=== PATIENT | female | born 1950 | race Caucasian/White ===

== ENCOUNTER 2023-05-30 05:26 | Day surgery (SDC) | payer MEDICARE, OTHER ==
[2023-05-24 14:35] LABS: BASOPHILS % (AUTO) 0.6 % (0-1); EOSINOPHILS # (AUTO) 0.1 X10'3 (0-0.9); EOSINOPHILS % (AUTO) 2.3 % (0-6); LYMPHOCYTES # (AUTO) 1.9 X10'3 (1.1-4.8); LYMPHOCYTES % (AUTO) 33.2 % (21-51); MEAN CORPUSCULAR HEMOGLOBIN 32.6 PG (27.0-31.0); MEAN CORPUSCULAR HGB CONC 33.9 g/dL (33.0-36.5); MEAN PLATELET VOLUME 10.5 FL (7.4-10.4); MONOCYTES # (AUTO) 0.4 X10'3 (0-0.9); MONOCYTES % (AUTO) 7.6 % (2-12); NEUTROPHILS # (AUTO) 3.2 X10'3 (1.8-7.7); NEUTROPHILS % (AUTO) 56.3 % (42-75); PRE OP HEMATOCRIT 44.9 % (35.0-45.0); PRE OP HEMOGLOBIN 15.2 g/dL (12.0-16.0); PRE OP PLATELET COUNT 130 X10'3 (140-440); PRE OP WHITE BLOOD COUNT 5.8 10'3 (4.8-10.8); RED BLOOD COUNT 4.67 X10'6 (4.20-5.60); RED CELL DISTRIBUTION WIDTH 12.9 % (11.5-14.5)
[2023-05-24 14:49] LABS: ALBUMIN 4.2 G/DL (3.4-5.0); ALBUMIN/GLOBULIN RATIO 1.2 (1.1-1.5); ALKALINE PHOSPHATASE 49 IU/L (46-116); BLOOD UREA NITROGEN 21 MG/DL (7-18); BUN/CREATININE RATIO 22.1 (10.0-20.0); CHLORIDE 102 MMOL/L (99-107); CREATININE 0.95 MG/DL (0.40-0.90); PRE OP ALT 41 U/L (30-65); PRE OP ANION GAP 10 (8-16); PRE OP BILIRUB, TOTAL 0.5 MG/DL (0.0-1.0); PRE OP GLUCOSE 102 MG/DL (70-104); PRE OP SODIUM 139 MMOL/L (135-145); TOTAL CARBON DIOXIDE 26.9 MMOL/L (24-32); TOTAL PROTEIN 7.6 G/DL (6.4-8.2); eGFR 58 ML/MIN
[2023-05-24 16:09] LABS: PRE OP AST 23 U/L (10-37)
[2023-05-24 16:10] LABS: PRE OP POTASSIUM 4.6 MMOL/L (3.4-5.1)
[~2023-05-30] VITALS: Ht 170.2 cm; Wt 90.3 kg
[2023-05-30] VITALS (8 sets, daily range): BP systolic 113–164; BP diastolic 72–91; PULSE 57–75; RESP 10–16; TEMP 98.6; O2SAT 94–97
[~2023-05-30 05:26] MED LIST: ASPI-611 PO; BUPR300T86 PO; ESTR0.624 PO; LEVO25TA7 PO; METO25TA6 PO; SPIR50TA5 PO; TRET40CR9 TOP; ringers solution, lacted 1,000 ML IV SCH
[2023-05-30] MEDS ORDERED: famotidine 20mg tablet PO ONE (05:30)
[2023-05-30] MEDS ORDERED: DOCUMENT DATE & TIME OF BETA-BLOCKER PO ONE (05:30)
[2023-05-30] MEDS ORDERED: clindamycin-Cleocin 900mg/D5W 50 ML IV ONE (05:30)
[2023-05-30] MEDS ORDERED: BUPIVAcaine/PF 2.5 mg/ml (0.25%) 30ml vial ONE ×2 (06:37→07:09)
[2023-05-30] MEDS ORDERED: LIDOcaine 1% 30ml preserv. free vial ONE (06:37)
[2023-05-30] MEDS ORDERED: BUPIVACAINE liposomal/PF 13.3 MG/ML vial IM ONE ×2 (07:09→08:14)
[2023-05-30] MEDS ORDERED: fentaNYL /PF 50mcg/ml 5ml ampule ONE (07:27)
[2023-05-30] MEDS ORDERED: midazolam 1 mg/ML 2ml injection ONE (07:27)
[2023-05-30] MEDS ORDERED: labetalol 20mg/4ml (5mg/ml) syringe IV PRN (07:30)
[2023-05-30] MEDS ORDERED: ringers solution, lacted 1,000 ML IV SCH (07:30)
[2023-05-30] MEDS ORDERED: morphine 4 MG/ML inj SYRINge IV PRN (07:30)
[2023-05-30] MEDS ORDERED: proCHLORperazine 10 MG/2 ml inj IV PRN (07:30)
[2023-05-30] MEDS ORDERED: meperidine/PF 25mg/ml syringe IV PRN ×3 (07:30)
[2023-05-30] MEDS ORDERED: ondansetron/PF 4mg/2ml inj IV PRN (07:30)
[2023-05-30] MEDS ORDERED: acetaminophen 1,000mg/100ml IV 100 ML IV PRN (07:30)
[2023-05-30] MEDS ORDERED: morphine 2 MG/ML inj. syringe IV PRN (07:30)
[2023-05-30] MEDS ORDERED: hydrALAZINE 20mg/ml inj. IV PRN (07:30)
[2023-05-30] MEDS ORDERED: sevoflurane 250ml liquid IH ONE (07:32)
[2023-05-30] MEDS ORDERED: 0.9 % SODIUM CHLORIDE 10 ML VIAL ONE (07:55)
[2023-05-30] MEDS ORDERED: LIDOcaine 2% (20mg/ml) 5ml vial ONE (07:55)
[2023-05-30] MEDS ORDERED: ondansetron/PF 4mg/2ml inj ONE ×2 (07:55)
[2023-05-30] MEDS ORDERED: dexamethasone sod phosphate 4mg/ml inj. ONE (07:55)
[2023-05-30] MEDS ORDERED: rocuronium 10mg/ml inj IV ONE (07:55)
[2023-05-30] MEDS ORDERED: propofol inj 20 ML IV ONE (07:55)
[2023-05-30] MEDS ORDERED: BUPIVAcaine HCl 0.25%/EPInephrine 1:200,000 inj. 10 ML VIAL IM ONE (08:03)
[2023-05-30] MEDS ORDERED: ePHEDrine 50MG/ML INJ. ONE (08:04)
[2023-05-30] MEDS ORDERED: LIDOcaine 1% 30ml preserv. free vial TOP ONE (08:15)
[2023-05-30] MEDS ORDERED: glycopyrrolate 0.2mg/ml inj ONE (08:45)
[2023-05-30] MEDS ORDERED: neostigmine methylsulfate 1 MG/ML 10ml vial ONE (08:45)
--- NOTE | 2023-05-30 08:54 | NUR ---
Received from OR via [facility] TO RR 7, accompanied by Anesthesiologist DR SHAFFER and report given by Anesthesiolgist. PT PRESENTS ON 8L VIA MASK. NO C/O PAIN OR NAUSEA. NO S/S DISTRESS. ABD DRESSING CDI COVERED WITH ABD BINDER. LR RUNNING THRU PIV, SCDS ON BILATERALLY. WILL CONTINUE TO ASSESS.
[2023-05-30] MEDS ORDERED: oxyCODONE/APAP 5-325mg tablet PO PRN ×2 (08:55→09:10)
[2023-05-30] MEDS ORDERED: oxyCODONE IR 5mg (immed. release) tablet PO PRN (09:05)
--- NOTE | 2023-05-30 09:54 | NUR ---
PATIENT STABLE FOR D/C PER MD ORDERS. VSS, PAIN AT TOLERABLE LEVEL. ABLE TO SAFELY AMBULATE AND TRANSFER SELF. IV TAKEN OUT WITHOUT ANY COMPLICATIONS. ALL DISCHARGE INSTRUCTIONS COVERED WITH PATIENT AND ALL QUESTIONS ANSWERED. EDUCATED ON IMPORTANCE OF CONSTIPATION, NOT STRAINING, AND SPLINTING TO REDUCE PAIN. ALL PERSONAL BELONGINGS WENT WITH PATIENT. ABD DRESSINGS CDI COVERED WITH ABD BINDER. PATIENT TAKEN OUT VIA WHEELCHAIR TO PERSONAL VEHICLE WHERE FAMILY WAS WAITING. PATIENT TRANSFERRED INTO VEHICLE WITHOUT INCIDENT.
== END 2023-05-30 09:54 | disposition home or self-care (01) ==
LOC: PAS 05:26
PROVIDERS: ATTEND Surgery
DX: K42.9 Umbilical hernia without obstruction or gangrene (principal); I10 Essential (primary) hypertension; E03.9 Hypothyroidism, unspecified; F41.9 Anxiety disorder, unspecified; F32.A Depression, unspecified; M19.90 Unspecified osteoarthritis, unspecified site; Z88.0 Allergy status to penicillin; Z88.2 Allergy status to sulfonamides; Z72.89 Other problems related to lifestyle; Z85.038 Personal history of other malignant neoplasm of large intestine; Z85.41 Personal history of malignant neoplasm of cervix uteri; Z90.710 Acquired absence of both cervix and uterus; Z98.890 Other specified postprocedural states; Z90.49 Acquired absence of other specified parts of digestive tract; Z79.899 Other long term (current) drug therapy; Z79.82 Long term (current) use of aspirin; Z82.61 Family history of arthritis; Z82.49 Family history of ischemic heart disease and other diseases of the circulatory system; Z80.0 Family history of malignant neoplasm of digestive organs; Z80.49 Family history of malignant neoplasm of other genital organs
CPT/HCPCS: 49593; 64488; 80053; 82948; 85025; 93005; C1781; C9290; J1100; J2250; J2405; J2704; J2710; J3010; J3490; J7030; J7120; Z7506; Z7508; Z7512; A4215; A4618

== ENCOUNTER 2025-03-10 13:25 | Outpatient (CLI) | payer MEDICARE, OTHER ==
[~2025-03-10 13:25] MED LIST changes: +BUPR-480 PO; -BUPR300T86 PO; -ringers solution, lacted 1,000 ML IV SCH
--- NOTE | 2025-03-11 09:15 | RADIOLOGY REPORT ---
CLINICAL HISTORY: EFFUSION RIGHT ANKLE,OTHER INSTABILITY RIGHT FOOT TECHNIQUE: Multisequence multiplanar MRI images of the right ankle were obtained without contrast. COMPARISON: None FINDINGS: BONES/JOINTS: No acute fracture or focal marrow contusion. No osteochondral lesion. Moderate arthrit ic changes of the talonavicular joint with prominent dorsal spurring and joint space narrowing. No si gnificant joint effusion. There is excess fluid in the posterior subtalar recess extending along the posterior aspect of the talus and lateral malleolus. TENDONS: Tibialis posterior, flexor digitorum longus, and flexor hallucis longus tendons are intact. Mild peroneal tenosynovitis near the level of the lateral malleolus. Peroneus longus and brevis tendo ns are otherwise intact. Tibialis anterior, extensor hallucis longus, and extensor digitorum longus t endons are intact. Mild Achilles tendinosis with mild peritendinitis. No tear. LIGAMENTS: Deltoid ligament complex is intact. Spring ligament complex is intact. There is edema and fluid along the course of the anterior talofibular ligament, likely sequelae of sprain. Mild sprain o f the calcaneofibular ligament. Syndesmotic ligaments are intact. PLANTAR FASCIA: Mild edema and small amount of fluid adjacent to the calcaneal attachment of the plan tar fascia. SINUS TARSI: There is fluid in the lateral aspect of the sinus tarsi. MUSCLES: Unremarkable. No significant atrophy. OTHER: No other significant findings. IMPRESSION: 1. Sprains of the anterior talofibular and calcaneofibular ligaments. 2. Mild peroneal tenosynovitis near the level of the lateral malleolus. 3. 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 4. Findings consistent with mild plantar fasciitis. 5. Mild Achilles tendinosis with mild peritendinitis. 6. Additional findings as described above.
== END 2025-03-10 23:59 | disposition home or self-care (01) ==
LOC: MRI 13:25
PROVIDERS: ATTEND Podiatrist Foot & Ankle Surgery
DX: M19.071 Primary osteoarthritis, right ankle and foot (principal); M20.12 Hallux valgus (acquired), left foot; M79.672 Pain in left foot; M20.42 Other hammer toe(s) (acquired), left foot; M25.471 Effusion, right ankle; M25.374 Other instability, right foot; R60.0 Localized edema; M21.6X1 Other acquired deformities of right foot; M25.375 Other instability, left foot; M76.62 Achilles tendinitis, left leg; M65.871 Other synovitis and tenosynovitis, right ankle and foot
CPT/HCPCS: 73721